=== PATIENT | female | born 1940 | race Caucasian/White ===

== ENCOUNTER 2023-04-21 17:03 | Inpatient (IN) | payer MEDICARE, MEDICAID ==
[~2023-04-21] VITALS: Ht 152.4 cm; Wt 63.1 kg
[2023-04-21] MEDS ORDERED: heparin 10,000 units/1 ML INJ IV ONE (17:25)
[2023-04-21] MEDS ORDERED: morphine 2 MG/ML inj. syringe IV PRN (18:40)
[2023-04-21] MEDS ORDERED: magnesium 2GM in 50ml NS 50 ML IV PRN (18:40)
[2023-04-21] MEDS ORDERED: PERFLUTREN PROTEIN-A MICROSPHR (Optison) 0.22 MG/ML 3ML VIAL IV ONE (18:40)
[2023-04-21] MEDS ORDERED: acetaminophen 325mg tablet PO PRN (18:40)
[2023-04-21] MEDS ORDERED: potassium Cl 20 mEq SR tablet PO PRN (18:40)
[2023-04-21] MEDS ORDERED: magnesium Cl slow-release 64mg tablet PO PRN (18:40)
[2023-04-21] MEDS ORDERED: ondansetron/PF 4mg/2ml inj IV PRN (18:40)
[2023-04-21] MEDS ORDERED: potassium Cl 40MEQ/1/2NS 520ml 520 ML IV PRN (18:40)
[2023-04-21] MEDS ORDERED: magnesium 4gm in 100ml NS 100 ML IV PRN (18:40)
[2023-04-21 19:02] LABS: APTT > 139 SECONDS (22-32)
[2023-04-21 20:29] LABS: MAGNESIUM 2.2 MG/DL (1.5-2.4); POTASSIUM 3.2 MMOL/L (3.5-5.1)
[2023-04-21] MEDS: heparin 25,000 UNIT/250ml bag 250 ML IV PRN (20:29)
--- NOTE | 2023-04-21 20:39 | NUR ---
PER REPORT FROM [facility] RN UNAWARE OF INITIAL HEPARIN BOLUS, RATE ETC. OF HEPARIN NOR WAS A PTT DRAWN. HEPARIN WAS OFF FOR APROX 1 HOUR UPON PT ARRIVAL. PTT DRAWN AT 1735 RESULTED IN HIGH OF 139. HEPARIN PUT ON HOLD FOR 120 MIN PROVIDER NOTIFIED W/ NEW ORDERS TO RESTART AT A DECREASED RATE OF 3U/KG/HR FROM THE BASE RATE OF 800U/ HR. DISCUSSED RATE OF 600 U/ HR MD IN AGREEMENT. DISCUSSED W/ 2 RN'S FOR CO-SIGNING. RN ADMIN PER ORDER W/ NO ASE THUS FAR. PTT TO BE RE-DRAWN AT 22:40. CRN MADE AWARE. WILL CONT TO MONITOR. 140/67, 100, 95%RA, 16, 98.3. NAD NOTED OR OBSERVED.
[2023-04-21] MEDS: K and/or MAG REPLACEMENT MC SCH (20:48)
[2023-04-21] MEDS: potassium Cl 20 mEq SR tablet PO PRN (20:55)
[2023-04-22] MEDS: heparin 10,000 units/1 ML INJ IV PRN ×2 (00:17→14:39)
--- NOTE | 2023-04-22 00:33 | NUR ---
LAST PTT RESULT 40 HEPARIN PROTOCOL RESTARTED PER ORDER BY RN. PTT TO BE DRAWN AT 06:18. CRN NOTIFIED.
[2023-04-22] MEDS: potassium Cl 20 mEq SR tablet PO PRN (06:22)
--- NOTE | 2023-04-22 06:59 | NUR ---
RN CONFIRMED LABS THAT NEED TO BE RECOLLECTED WITH LAB AND CYRUS RODGERS WILL COLLECT AT THIS TIME AND SEND TO LAB.
[2023-04-22 07:17] LABS: BASOPHILS # (AUTO) 0.1 X10'3 (0-0.2); BASOPHILS % (AUTO) 0.8 % (0-1); EOSINOPHILS # (AUTO) 0.2 X10'3 (0-0.9); EOSINOPHILS % (AUTO) 2.1 % (0-6); HEMATOCRIT 36.4 % (35.0-45.0); HEMOGLOBIN 12.1 g/dl (12.0-16.0); LYMPHOCYTES # (AUTO) 0.9 X10'3 (1.1-4.8); LYMPHOCYTES % (AUTO) 10.4 % (21-51); MEAN CORPUSCULAR HEMOGLOBIN 29.5 PG (27.0-31.0); MEAN CORPUSCULAR HGB CONC 33.3 g/dL (33.0-36.5); MEAN CORPUSCULAR VOLUME 88.5 FL (78-98); MEAN PLATELET VOLUME 8.2 FL (7.4-10.4); MONOCYTES # (AUTO) 0.9 X10'3 (0-0.9); MONOCYTES % (AUTO) 10.2 % (2-12); NEUTROPHILS # (AUTO) 6.4 X10'3 (1.8-7.7); NEUTROPHILS % (AUTO) 76.5 % (42-75); PLATELET COUNT 205 X10'3 (140-440); RED BLOOD COUNT 4.12 X10'6 (4.20-5.60); RED CELL DISTRIBUTION WIDTH 16.5 % (11.5-14.5); WHITE BLOOD COUNT 8.4 X10'3 (4.5-11.0)
[2023-04-22 07:22] LABS: ANION GAP 3 (8-16); BLOOD UREA NITROGEN 28 MG/DL (7-18); BUN/CREATININE RATIO 20.9 (10.0-20.0); CALCIUM 8.7 MG/DL (8.5-10.1); CHLORIDE 103 MMOL/L (99-107); CREATININE 1.34 MG/DL (0.40-0.90); GLUCOSE 202 MG/DL (70-104); MAGNESIUM 2.2 MG/DL (1.5-2.4); POTASSIUM 3.9 MMOL/L (3.5-5.1); SODIUM 137 MMOL/L (135-145); TOTAL CARBON DIOXIDE 31.2 MMOL/L (24-32); eCRCL 23 ML/MIN; eGFR 38 ML/MIN
[2023-04-22] MEDS: K and/or MAG REPLACEMENT MC SCH ×2 (08:00→20:00)
--- NOTE | 2023-04-22 08:01 | NUR ---
PT PTT [address] ANG THAT HEP DRIP STOPPED AT [address] ANG CONT HEPARIN DRIP PER PROTOCOL AND COLLECT NEXT PTT 6 HRS FROM RESTART TIME.
[2023-04-22] MEDS: heparin 25,000 UNIT/250ml bag 250 ML IV PRN ×2 (08:28→14:37)
--- NOTE | 2023-04-22 08:38 | NUR ---
RN PAGED DR ANG- IRINA 9- PT HAS DM2. PLEASE ORD PROTOCOL BG 202 AND CARB CONTROLLED DIET. THKS
--- NOTE | 2023-04-22 08:58 | NUR ---
tech assisted pt to the bedside comode, then back to bed. tech gave pt breakfast on bedside table.
[2023-04-22] MEDS ORDERED: MESSAGE TO PHARMACY PO ONE (09:40)
[2023-04-22] MEDS ORDERED: glucagon, human recombinant 1mg kit SUBCUT PRN (09:40)
[2023-04-22] MEDS ORDERED: hydrALAZINE 20mg/ml inj. IV PRN (09:40)
[2023-04-22] MEDS ORDERED: DEXTROSE 15 GM of carb/4 tabs (each vial/BOTTLE has 4 tablets) PO PRN ×2 (09:40)
[2023-04-22] MEDS ORDERED: dextrose 50%-water 50ml dispensing syringe IV PRN ×2 (09:40)
[2023-04-22] MEDS: metoprolol tartrate 1mg/ml inj IV ONE ×2 (10:59→12:34)
--- NOTE | 2023-04-22 11:03 | NUR ---
PT IV NO LONGER WORKING. RN WILL OBTAIN NEW IV AT THIS TIME THEN ADMIN METOPROLOL IV.
--- NOTE | 2023-04-22 11:03 | NUR ---
ANA MARIA IRIZARRY FROM PHARM.
[2023-04-22] MEDS: insulin Lispro (HumaLOG) vial - multi-dose SQ SCH ×2 (11:42→15:52)
--- NOTE | 2023-04-22 11:43 | NUR ---
RN WILL OBTAIN PTT AND RESTART HEPARIN DRIP ONCE RESULTED IF NECESSARY.
--- NOTE | 2023-04-22 12:59 | NUR ---
RN CALLED LAB TO INQ ABOUT PTT STILL PENDING. PER LAB RESULTS SHOULD COME UP WITHIN A FEW MINS.
[2023-04-22 13:00] LABS: APTT 33 SECONDS (22-32)
--- NOTE | 2023-04-22 14:44 | NUR ---
RN HAD TO OBTAIN NEW IV SO HEPARIN BOLUS AND RATE CHG WAS DONE LATE. RN WILL COLLECT PTT STAT AND SEND TO LAB TO ENSURE ACCURACY.
[2023-04-22 15:27] LABS: APTT > 139 SECONDS (22-32)
--- NOTE | 2023-04-22 15:43 | NUR ---
PT PTT 137. RN STOPPED INFUSION/WILL HOLD 2 HRS/YOVANNY PTT IN 2HRS/DR ANG PAGED- ED 9- PTT 137. RN WILL HOLD INFUSION 2 HRS AND YOVANNY PTT PRIOR TO RESTART. THANKS
--- NOTE | 2023-04-22 17:50 | NUR ---
RN COLLECTED PTT AND SENT IT TO LAB.
--- NOTE | 2023-04-22 18:32 | NUR ---
PHONES BEING USED TO GIVE REPORT. RN WILL ATTEMPT TO CALL AND GIVE REPORT ONCE PHONE AVAILABLE.
[2023-04-22 18:33] LABS: APTT 47 SECONDS (22-32)
--- NOTE | 2023-04-22 19:08 | NUR ---
PTT ORD ENTERED PER PROTOCOL FOR 45. DUSTIN WILKINS NOTIFIED. STEWART RODGERS NOTIFIED THAT REPORT CALLED AND PT READY TO GO TO THE FLOOR.
[2023-04-22 21:00] VITALS: BP 169/77; PULSE 121; RESP 20; TEMP 97; O2SAT 90
[2023-04-22] MEDS: insulin glargine (Lantus) pen - multi-dose SQ SCH (21:00)
[2023-04-22] MEDS: metoprolol tartrate 50mg tablet PO SCH (21:26)
[2023-04-22 22:00] VITALS: BP 157/81; PULSE 121; RESP 21; TEMP 97.8; O2SAT 92
[2023-04-23] VITALS (10 sets, daily range): BP systolic 101–158; BP diastolic 65–86; PULSE 89–110; RESP 16–26; TEMP 97.6–99; O2SAT 66–93
[2023-04-23 01:09] LABS: APTT 63 SECONDS (22-32)
--- NOTE | 2023-04-23 06:45 | NUR ---
Problems reprioritized. Patient report given, questions answered & plan of care reviewed with Pastora RODGERS.
[2023-04-23 07:35] LABS: ALBUMIN 3.1 G/DL (3.4-5.0); ANION GAP 6 (8-16); BLOOD UREA NITROGEN 34 MG/DL (7-18); BUN/CREATININE RATIO 27.2 (10.0-20.0); CALCIUM 9.5 MG/DL (8.5-10.1); CHLORIDE 103 MMOL/L (99-107); CREATININE 1.25 MG/DL (0.40-0.90); GLUCOSE 230 MG/DL (70-104); MAGNESIUM 2.5 MG/DL (1.5-2.4); POTASSIUM 4.8 MMOL/L (3.5-5.1); SODIUM 138 MMOL/L (135-145); TOTAL CARBON DIOXIDE 29.1 MMOL/L (24-32); eCRCL 25 ML/MIN; eGFR 41 ML/MIN
[2023-04-23 07:44] LABS: BASOPHILS # (AUTO) 0.1 X10'3 (0-0.2); BASOPHILS % (AUTO) 0.6 % (0-1); EOSINOPHILS % (AUTO) 0.1 % (0-6); HEMATOCRIT 36.8 % (35.0-45.0); LYMPHOCYTES # (AUTO) 0.8 X10'3 (1.1-4.8); MEAN CORPUSCULAR HEMOGLOBIN 29.1 PG (27.0-31.0); MEAN CORPUSCULAR HGB CONC 32.5 g/dL (33.0-36.5); MEAN CORPUSCULAR VOLUME 89.6 FL (78-98); MEAN PLATELET VOLUME 8.5 FL (7.4-10.4); MONOCYTES # (AUTO) 0.8 X10'3 (0-0.9); MONOCYTES % (AUTO) 7.3 % (2-12); NEUTROPHILS # (AUTO) 9.7 X10'3 (1.8-7.7); PLATELET COUNT 260 X10'3 (140-440); RED CELL DISTRIBUTION WIDTH 16.7 % (11.5-14.5); WHITE BLOOD COUNT 11.5 X10'3 (4.5-11.0)
[2023-04-23] MEDS: K and/or MAG REPLACEMENT MC SCH ×2 (08:00→20:00)
--- NOTE | 2023-04-23 08:47 | NUR ---
MESSAGE SENT TO DR ANG: PAGER ID: [phone] MESSAGE: HALLIE PERSON [phone], [place] [phone] CRITICAL LAB FROM [facility]: GRAM POSITIVE COCCI/CLUSTERS, AEROBIC BOTTLE.
[2023-04-23] MEDS ORDERED: VANCOMYCIN 750MG IV in NS 250 ML IV SCH (09:30)
[2023-04-23] MEDS: insulin Lispro (HumaLOG) vial - multi-dose SQ SCH ×2 (09:49→13:32)
[2023-04-23] MEDS: aspirin 81mg, enteric-coated 1 TAB TABLET.DR PO SCH (09:57)
[2023-04-23] MEDS: metoprolol tartrate 50mg tablet PO SCH ×2 (09:58→22:33)
[2023-04-23] MEDS: losartan 25mg tablet PO SCH (09:58)
[2023-04-23] MEDS: atorvastatin 20mg tablet PO SCH (09:58)
--- NOTE | 2023-04-23 10:03 | NUR ---
DM Consult: Pt hx DM A1C 8.1% per EMR. A1C appropriate given age per ADA guidelines. Addendum: 04/23/23 at [address] Amended: Links added.
[2023-04-23] MEDS ORDERED: aminophylline 250mg/10ml inj. IV PRN (10:05)
[2023-04-23] MEDS ORDERED: regadenoson 0.4mg/5ml syringe IV PRN (10:05)
[2023-04-23] MEDS ORDERED: metoprolol tartrate 1mg/ml inj IV PRN (10:05)
[2023-04-23] MEDS ORDERED: nitroGLYCERIN 0.4mg SUBLingual tab SL PRN (10:05)
--- NOTE | 2023-04-23 11:51 | NUR ---
CRITICAL TROP 217, DR BARONE, AWAITING CALL BACK PAGER ID: [phone] MESSAGE: [id number] [id number]: CRITICAL TROP 217. THANK YOU KALEN/NAYA [phone]
[2023-04-23] MEDS ORDERED: ipratropium/albuterol 3ml nebule NEB PRN (12:00)
--- NOTE | 2023-04-23 12:01 | NUR ---
Message sent to Dr Landis PAGER ID: [phone] MESSAGE: pool Guillory [phone], [place] [phone] Critical troponin 217. (56 character message out of a maximum of 240) CLOSE [X] SEND ANOTHER PAGE Thank you for visiting [facility] promotional table spacer promotional table spacer
[2023-04-23] MEDS ORDERED: furosemide 40mg/4ml inj IV SCH (13:35)
--- NOTE | 2023-04-23 16:08 | NUR ---
Student charting reviewed by the instructor
--- NOTE | 2023-04-23 18:46 | NUR ---
REPORT GIVEN TO BRANNON DAS. PT EATING DINNER, DESATS W/OUT OXYGEN, BRANNON WILL MONITOR. NO NEW COMPLAINTS AT THIS TIME.
[2023-04-23] MEDS: insulin glargine (Lantus) pen - multi-dose SQ SCH (21:00)
[2023-04-24] VITALS (12 sets, daily range): BP systolic 120–161; BP diastolic 59–79; PULSE 78–110; RESP 12–28; TEMP 97.5–98.8; O2SAT 88–96
--- NOTE | 2023-04-24 02:37 | NUR ---
OFFICE INSPECTOR informed nurse pt oxygen saturation was staying around 85%. Nurse and OFFICE INSPECTOR boosted pt up in bed, pt A+O to baseline, answering questions appropriately and obeys nurse requests. Nurse changed pt from a nasal cannula to simple mask as pt is a mouth breather, oxygen saturation increased to 88%.
[2023-04-24 06:31] LABS: BASOPHILS # (AUTO) 0.1 X10'3 (0-0.2); BASOPHILS % (AUTO) 0.6 % (0-1); EOSINOPHILS % (AUTO) 0.1 % (0-6); HEMATOCRIT 37.2 % (35.0-45.0); HEMOGLOBIN 11.8 g/dl (12.0-16.0); LYMPHOCYTES # (AUTO) 0.9 X10'3 (1.1-4.8); LYMPHOCYTES % (AUTO) 7.8 % (21-51); MEAN CORPUSCULAR HEMOGLOBIN 28.6 PG (27.0-31.0); MEAN CORPUSCULAR HGB CONC 31.8 g/dL (33.0-36.5); MEAN CORPUSCULAR VOLUME 90.1 FL (78-98); MEAN PLATELET VOLUME 8.1 FL (7.4-10.4); MONOCYTES # (AUTO) 0.4 X10'3 (0-0.9); MONOCYTES % (AUTO) 3.5 % (2-12); NEUTROPHILS # (AUTO) 10.3 X10'3 (1.8-7.7); PLATELET COUNT 319 X10'3 (140-440); RED BLOOD COUNT 4.13 X10'6 (4.20-5.60); RED CELL DISTRIBUTION WIDTH 17.1 % (11.5-14.5); WHITE BLOOD COUNT 11.7 X10'3 (4.5-11.0)
--- NOTE | 2023-04-24 06:48 | NUR ---
Problems reprioritized. Patient report given, questions answered & plan of care reviewed with Yasmin RODGERS. Pt stable at shift change.
[2023-04-24 07:18] LABS: ANION GAP 8 (8-16); BLOOD UREA NITROGEN 59 MG/DL (7-18); BUN/CREATININE RATIO 31.1 (10.0-20.0); CALCIUM 9.7 MG/DL (8.5-10.1); CHLORIDE 101 MMOL/L (99-107); GLUCOSE 270 MG/DL (70-104); MAGNESIUM 2.7 MG/DL (1.5-2.4); POTASSIUM 4.8 MMOL/L (3.5-5.1); SODIUM 138 MMOL/L (135-145); TOTAL CARBON DIOXIDE 28.9 MMOL/L (24-32); eCRCL 16 ML/MIN; eGFR 25 ML/MIN
[2023-04-24] MEDS: K and/or MAG REPLACEMENT MC SCH ×2 (08:00→20:00)
[2023-04-24] MEDS: aspirin 81mg, enteric-coated 1 TAB TABLET.DR PO SCH (08:10)
[2023-04-24] MEDS: atorvastatin 20mg tablet PO SCH (08:10)
[2023-04-24] MEDS: metoprolol tartrate 50mg tablet PO SCH ×2 (08:10→22:02)
[2023-04-24] MEDS: furosemide 40mg/4ml inj IV SCH ×3 (08:11→22:02)
[2023-04-24] MEDS: insulin Lispro (HumaLOG) vial - multi-dose SQ SCH ×2 (08:17→13:54)
[2023-04-24 09:28] LABS: ABG BASE EXCESS 0.9 mmol/L (-2.0-2.0); ABG HCO3 27.9 mmol/L (22.0-26.0); ABG OXYGEN SATURATION 83.1 % (94-97); ABG PCO2 (T) 55.5 mmHg (32.0-45.0); ABG PH (T) 7.319 (7.350-7.450); ABG PO2 (T) 51.1 mmHg (75.0-100.0); ALLEN'S TEST POSITIVE; FCOHb 0.6 % (0.0-3.9); FHHb 16.7 % (0.0-5.0); FMetHb 0.3 % (0.0-1.5); FO2Hb 82.4 % (94-97); MODE ROOM AIR; TOTAL HEMOGLOBIN 12.2 G/dl (12.0-16.0)
--- NOTE | 2023-04-24 09:33 | NUR ---
Per facility chain of command, contacted resident regarding pt. increased confusion, increased RR and need for 02, and positive BC from documents in hard chart.
--- NOTE | 2023-04-24 09:52 | NUR ---
Pt. taking 02 mask off often. Reeducated many times. Drops to 70s. Pt. found out of bed in bathroom with o2 off. Resident made aware ABGs drawn and pt. confused and a danger to herself. States she will discuss with hospitalist when she rounds.
[2023-04-24] MEDS: losartan 25mg tablet PO SCH (11:34)
[2023-04-24] MEDS: vancomycin inj 500 MG in normal saline 100ml IV soln 100 ML IV SCH (11:35)
--- NOTE | 2023-04-24 11:42 | NUR ---
Called resident for information on pt. after rounding. FRANCISCA.
[2023-04-24] MEDS ORDERED: ATOR-2 PO (16:58)
[2023-04-24] MEDS ORDERED: CLOP75TA34 PO (16:58)
[2023-04-24] MEDS ORDERED: METO25TA6 PO (16:58)
[2023-04-24] MEDS ORDERED: FURO20TA4 PO (16:58)
[2023-04-24] MEDS ORDERED: NITR0.4T48 PO (16:58)
[2023-04-24] MEDS ORDERED: GABA600T13 PO (16:58)
[2023-04-24] MEDS ORDERED: AMLO5TAB16 PO (16:58)
[2023-04-24] MEDS ORDERED: ALEN70TA80 PO (16:58)
--- NOTE | 2023-04-24 18:30 | NUR ---
GAVE REPORT TO BRANNON RODGERS.
[2023-04-24] MEDS: insulin glargine (Lantus) pen - multi-dose SQ SCH (21:53)
[2023-04-25] VITALS (18 sets, daily range): BP systolic 106–172; BP diastolic 45–81; PULSE 83–100; RESP 13–20; TEMP 98–98.9; O2SAT 91–95
[2023-04-25] MEDS: heparin, porcine 5000 units/ml vial SQ SCH ×3 (01:41→17:54)
[2023-04-25 03:30] LABS: ABG BASE EXCESS 8.7 mmol/L (-2.0-2.0); ABG HCO3 35.4 mmol/L (22.0-26.0); ABG OXYGEN SATURATION 94.1 % (94-97); ABG PCO2 (T) 58.7 mmHg (32.0-45.0); ABG PH (T) 7.397 (7.350-7.450); ABG PO2 (T) 70.4 mmHg (75.0-100.0); ALLEN'S TEST Modified; FCOHb 0.4 % (0.0-3.9); FHHb 5.9 % (0.0-5.0); FMetHb 0.3 % (0.0-1.5); FO2Hb 93.4 % (94-97); MODE BiPAP; PATIENT TEMPERATURE 36.8; RESPIRATORY RATE 8 b/min
--- NOTE | 2023-04-25 05:21 | NUR ---
Pt morning ABGs resulted, Provider Ranulfo notified. pH went from 7.319 to 7.397, CO2 went from 55.5 to 59.2, and HCO3 went from 27.9 to 35.4. Provider told nurse to message respiratory to increase Bipap tidal volume and RR settings if possible.
--- NOTE | 2023-04-25 05:59 | NUR ---
Nurse notified provider Bargan that pt had foul smelling urine and was incontinent. Provider gave order for a UA.
--- NOTE | 2023-04-25 06:32 | NUR ---
Problems reprioritized. Patient report given, questions answered & plan of care reviewed with Yasmin RODGERS. Pt stable at shift change.
[2023-04-25 06:49] LABS: BASOPHILS # (AUTO) 0.1 X10'3 (0-0.2); EOSINOPHILS # (AUTO) 0.1 X10'3 (0-0.9); EOSINOPHILS % (AUTO) 1.8 % (0-6); HEMATOCRIT 34.9 % (35.0-45.0); HEMOGLOBIN 11.4 g/dl (12.0-16.0); LYMPHOCYTES # (AUTO) 0.9 X10'3 (1.1-4.8); LYMPHOCYTES % (AUTO) 13.1 % (21-51); MEAN CORPUSCULAR HEMOGLOBIN 28.9 PG (27.0-31.0); MEAN CORPUSCULAR HGB CONC 32.6 g/dL (33.0-36.5); MEAN CORPUSCULAR VOLUME 88.6 FL (78-98); MONOCYTES # (AUTO) 0.7 X10'3 (0-0.9); MONOCYTES % (AUTO) 9.7 % (2-12); NEUTROPHILS # (AUTO) 5.2 X10'3 (1.8-7.7); NEUTROPHILS % (AUTO) 74.4 % (42-75); PLATELET COUNT 242 X10'3 (140-440); RED BLOOD COUNT 3.94 X10'6 (4.20-5.60); RED CELL DISTRIBUTION WIDTH 16.5 % (11.5-14.5)
[2023-04-25 07:11] LABS: ALBUMIN 2.7 G/DL (3.4-5.0); ANION GAP 8 (8-16); BLOOD UREA NITROGEN 55 MG/DL (7-18); BUN/CREATININE RATIO 37.9 (10.0-20.0); CALCIUM 9.3 MG/DL (8.5-10.1); CHLORIDE 104 MMOL/L (99-107); CREATININE 1.45 MG/DL (0.40-0.90); GLUCOSE 165 MG/DL (70-104); MAGNESIUM 2.3 MG/DL (1.5-2.4); POTASSIUM 3.6 MMOL/L (3.5-5.1); SODIUM 143 MMOL/L (135-145); TOTAL CARBON DIOXIDE 30.6 MMOL/L (24-32); eCRCL 21 ML/MIN; eGFR 34 ML/MIN
--- NOTE | 2023-04-25 07:17 | NUR ---
0715- RT AT PATIENTS BEDSIDE. PER PATIENTS LAST ABG, PATIENT FULLY COMPENSATED WITH A PH OF 7.39. PT ALERT AND ORIENTED, SHOWING NO SIGNS OF SOB/DISTRESS. RT PLACED PATIENT ON 4L NC SPO2 96%. RT WILL CONTINUE TO MONITOR PT. Addendum: 04/25/23 at 0722 by Nolvia Garcia RT Amended: Links added.
[2023-04-25] MEDS: K and/or MAG REPLACEMENT MC SCH ×2 (08:00→19:35)
[2023-04-25 09:27] LABS: BILIRUBIN,URINE NEGATIVE (Neg); CLARITY,URINE CLOUDY (Clear); COLOR,URINE YELLOW (Yellow); GLUCOSE, URINE NEGATIVE (Neg); KETONES,URINE NEGATIVE (Neg); LEUKOCYTE ESTERASE ,URINE LARGE (Neg); NITRITES, URINE POSITIVE (Neg); OCCULT BLOOD,URINE TRACE-INTACT (Neg); PH,URINE 5.5 (4.8-8.0); PROTEIN,URINE TRACE mg/dl (Neg); UROBILINOGEN,URINE 0.2 E.U/dL (0.2-1.0)
[2023-04-25] MEDS: furosemide 40mg/4ml inj IV SCH ×2 (09:27→19:22)
[2023-04-25] MEDS: metoprolol tartrate 50mg tablet PO SCH ×2 (09:28→19:23)
[2023-04-25] MEDS: atorvastatin 20mg tablet PO SCH (09:29)
[2023-04-25] MEDS: aspirin 81mg, enteric-coated 1 TAB TABLET.DR PO SCH (09:29)
[2023-04-25 09:33] LABS: SQUAMOUS EPITHELIAL CELL,UR FEW /LPF (FEW); UA COLLECTION TYPE CLN CATCH MIDSTREAM
[2023-04-25 09:34] LABS: BACTERIA,URINE 4+ /HPF (Neg); WBC,URINE TNTC /HPF (0-4)
[2023-04-25 09:35] LABS: RBC,URINE 0-2 /HPF (0-2); WBC CLUMPS,URINE MODERATE /HPF (NEGATIVE)
[2023-04-25] MEDS: insulin Lispro (HumaLOG) vial - multi-dose SQ SCH ×2 (09:36→13:13)
[2023-04-25] MEDS: vancomycin inj 500 MG in normal saline 100ml IV soln 100 ML IV SCH (11:00)
[2023-04-25] MEDS: losartan 25mg tablet PO SCH (11:01)
[2023-04-25] MEDS ORDERED: ALEN70TA60 PO (13:17)
[2023-04-25] MEDS ORDERED: ALLO100T25 PO (13:17)
[2023-04-25] MEDS ORDERED: ASPI81TA52 PO (13:17)
[2023-04-25] MEDS ORDERED: COLC0.6T72 PO (13:17)
[2023-04-25] MEDS ORDERED: CALC-1215 PO (13:17)
[2023-04-25] MEDS ORDERED: IBUP-2697 PEG (13:17)
[2023-04-25] MEDS ORDERED: INSU100V9 SQ ×2 (13:17)
[2023-04-25] MEDS ORDERED: regadenoson 0.4mg/5ml syringe IV ONE (14:30)
--- NOTE | 2023-04-25 15:10 | NUR ---
DM Consult: Addressed; see prior RD note. Addendum: 04/25/23 at [address] Amended: Links added.
--- NOTE | 2023-04-25 18:18 | NUR ---
Gave report to Melanie RODGERS.
--- NOTE | 2023-04-25 19:02 | NUR ---
provider paged PAGER ID: [phone] MESSAGE: [phone]. FYI pt daughter would like to talk to MD regarding plan with pt. Nurse talked and updated to best of my ability. thanks, Melanie [phone].
[2023-04-25] MEDS: gabapentin 300mg capsule PO SCH (19:23)
[2023-04-25] MEDS: CALCIUM CARBONATE PO SCH (19:35)
[2023-04-25] MEDS: VITAMIN D3 PO SCH (19:35)
[2023-04-25] MEDS: insulin glargine (Lantus) pen - multi-dose SQ SCH (21:00)
[2023-04-25] MEDS ORDERED: INSULIN GLARGINE HUM REC ANLOG 35 UNIT SQ SCH (21:00)
[2023-04-26] MEDS: heparin, porcine 5000 units/ml vial SQ SCH ×2 (00:22→08:43)
[2023-04-26 02:00] VITALS: BP 165/72; PULSE 82; RESP 18; TEMP 98.7; O2SAT 95
--- NOTE | 2023-04-26 06:42 | NUR ---
Problems reprioritized. Patient report given, questions answered & plan of care reviewed with Yasmin RODGERS. Pt stable at shift change.
[2023-04-26 06:58] VITALS: BP 158/62; PULSE 76; RESP 21; TEMP 98.7; O2SAT 93
[2023-04-26 07:34] LABS: BASOPHILS # (AUTO) 0.1 X10'3 (0-0.2); BASOPHILS % (AUTO) 1.2 % (0-1); EOSINOPHILS # (AUTO) 0.3 X10'3 (0-0.9); EOSINOPHILS % (AUTO) 4.1 % (0-6); HEMATOCRIT 36.7 % (35.0-45.0); HEMOGLOBIN 12.1 g/dl (12.0-16.0); LYMPHOCYTES # (AUTO) 1.4 X10'3 (1.1-4.8); MEAN CORPUSCULAR HEMOGLOBIN 29.1 PG (27.0-31.0); MEAN CORPUSCULAR VOLUME 88.3 FL (78-98); MEAN PLATELET VOLUME 8.1 FL (7.4-10.4); MONOCYTES # (AUTO) 0.9 X10'3 (0-0.9); MONOCYTES % (AUTO) 11.6 % (2-12); NEUTROPHILS # (AUTO) 4.9 X10'3 (1.8-7.7); NEUTROPHILS % (AUTO) 64.1 % (42-75); PLATELET COUNT 282 X10'3 (140-440); RED BLOOD COUNT 4.15 X10'6 (4.20-5.60); RED CELL DISTRIBUTION WIDTH 16.5 % (11.5-14.5); WHITE BLOOD COUNT 7.6 X10'3 (4.5-11.0)
[2023-04-26 08:00] VITALS: RESP 18; O2SAT 93
[2023-04-26] MEDS ORDERED: clopidogrel 75mg tablet PO SCH (08:00)
[2023-04-26] MEDS ORDERED: non-formulary drug (Insulin Glargine,Hum.rec.anlog (Lantus) 20 UNIT) SQ SCH (08:00)
[2023-04-26] MEDS ORDERED: aspirin 81mg, enteric-coated 1 TAB TABLET.DR PO SCH (08:00)
[2023-04-26] MEDS ORDERED: atorvastatin 20mg tablet PO SCH (08:00)
[2023-04-26] MEDS ORDERED: amLODIPine 5mg tablet PO SCH (08:00)
[2023-04-26] MEDS: gabapentin 300mg capsule PO SCH ×2 (08:00→09:05)
[2023-04-26] MEDS: VITAMIN D3 PO SCH (08:00)
[2023-04-26] MEDS ORDERED: losartan 25mg tablet PO SCH (08:00)
[2023-04-26] MEDS: K and/or MAG REPLACEMENT MC SCH (08:00)
[2023-04-26] MEDS: CALCIUM CARBONATE PO SCH (08:00)
[2023-04-26 08:37] LABS: ALBUMIN 2.7 G/DL (3.4-5.0); ANION GAP 4 (8-16); BLOOD UREA NITROGEN 45 MG/DL (7-18); BUN/CREATININE RATIO 38.8 (10.0-20.0); CHLORIDE 104 MMOL/L (99-107); CREATININE 1.16 MG/DL (0.40-0.90); GLUCOSE 115 MG/DL (70-104); POTASSIUM 3.2 MMOL/L (3.5-5.1); SODIUM 146 MMOL/L (135-145); TOTAL CARBON DIOXIDE 37.6 MMOL/L (24-32); eCRCL 26 ML/MIN; eGFR 45 ML/MIN
[2023-04-26] MEDS: metoprolol tartrate 50mg tablet PO SCH (08:42)
[2023-04-26 08:43] VITALS: BP_SYST 160
[2023-04-26] MEDS: furosemide 40mg/4ml inj IV SCH (08:43)
[2023-04-26] MEDS: insulin Lispro (HumaLOG) vial - multi-dose SQ SCH (09:01)
[2023-04-26] MEDS ORDERED: potassium Cl 20 mEq SR tablet PO STA (10:19)
[2023-04-26] MEDS ORDERED: potassium Cl 20 mEq SR tablet PO PRN ×2 (10:20)
[2023-04-26] MEDS ORDERED: POTASSIUM BICARB 20meq eff tab 20 MEQ TABLET.EFF PO STA (10:49)
[2023-04-26] MEDS ORDERED: POTASSIUM BICARB 20meq eff tab 20 MEQ TABLET.EFF PO PRN ×2 (10:50)
--- NOTE | 2023-04-26 10:53 | NUR ---
O2 Sat at rest on room air:_92__% If below 89%: Recovery O2 Sat at rest on _2__LPM:__98_%:___% via___n/c (mask/nasal cannula, etc..) No further documentation is necessary. If O2 Sat did not drop below 89% on room air,ambulate patient on room air. O2 Sat while ambulating on room air:_81__% Recovery O2 Sat while ambulating on __91_LPM:__2_% No further documentation is necessary. If patient does not drop below 89% while ambulating, he/she does not qualify for home O2.
[2023-04-26] MEDS: vancomycin inj 500 MG in normal saline 100ml IV soln 100 ML IV SCH (11:00)
[2023-04-26 11:02] VITALS: PULSE 66; RESP 18; O2SAT 96
--- NOTE | 2023-04-26 12:05 | NUR ---
Initial: Pt presented with c/o SOB and admit for CHF with preserved EF and NSETMI with acute respiratory, PNA, and VITA. Per EMR pt currently on 2 L NC. Pt on an SB6 heart healthy CHO controlled diet and overall eating poorly, given 0% PO intake of four meals pt with average 28% PO intake since admit meeting 31% estimated energy needs and 41% estimated protein needs. Per EMR pt is confused, possibly impacting PO intake. Recommend an Ensure Enlive TID to optimize PO intake, to be sent pending physician approval in EMR. Also recommend discontinuing heart healthy and CHO controlled diet restrictions given poor PO intake. LBM 04/25 per EMR. Will continue to follow closely and make recommendations as appropriate. Recommendations: 1) Continue SB6 diet with thin liquids; discontinue heart healthy CHO controlled diet restrictions given poor PO intake 2) Ensure Enlive TID, pending physician approval in EMR 3) Encourage PO intake and assist with meals PRN 4) Routine bowel care 5) Weekly scaled weights Addendum: 04/26/23 at [address] Amended: Links added.
[2023-04-26] MEDS ORDERED: lactose-reduced food (Ensure Enlive) - 237ml bottle PO SCH (13:00)
[2023-04-26] MEDS ORDERED: LOSA25TA41 PO (14:05)
[2023-04-26] MEDS ORDERED: POTA20TA34 PO (14:05)
[2023-04-26] MEDS ORDERED: IPRA3AMP9 NEB (14:05)
[2023-04-26] MEDS ORDERED: gabapentin capsule PO (14:05)
[2023-04-26] MEDS ORDERED: METO50TA16 PO (14:05)
[2023-04-26] MEDS ORDERED: FURO40TA4 PO (14:05)
[2023-04-26] MEDS ORDERED: METO50TA17 PO (14:27)
[2023-04-26 14:28] VITALS: RESP 12; O2SAT 95
[2023-04-26] MEDS ORDERED: CIPR250T4 PO (14:39)
--- NOTE | 2023-04-26 16:13 | NUR ---
DISCHARGE NOTE: Pt and daughter at bedside. Reviewed discharge paperwork, medications, possible ASE, probiotic use, cardiac meds, f/u care, diabetic care, preferred pharmacy. Written education also provided. PIV DC'd by SRN, cannula intact, pressure drsg applied, no s/sx bleeding noted. Tele removed and returned to tele chamber. Pt. had the opportunity to ask questions. Pt left with her belongings to discharge home.
[2023-04-27] MEDS ORDERED: gabapentin 300mg capsule PO SCH (08:00)
[2023-04-27] MEDS ORDERED: VANCOMYCIN LEVEL IV ONE (09:30)
== END 2023-04-26 16:00 | disposition home or self-care (01) | DRG 280 ==
LOC: EDBD 17:05 → ER 17:05 → ED HOLD 18:47 → EDBEDREQ 19:41 → PCU 3S 04-22 19:45
PROVIDERS: ADMIT Internal Medicine; ATTEND Internal Medicine
PROC: 5A09357 Assistance with Respiratory Ventilation, Less than 24 Consecutive Hours, Continuous Positive Airway Pressure (ICD-10-PCS; 2023-04-24)
PROC: 4A02XM4 Measurement of Cardiac Total Activity, External Approach (ICD-10-PCS; principal; 2023-04-25)
PROC: 3E033HZ Introduction of Radioactive Substance into Peripheral Vein, Percutaneous Approach (ICD-10-PCS; 2023-04-25)
DX: I21.4 Non-ST elevation (NSTEMI) myocardial infarction (principal); G93.41 Metabolic encephalopathy; J18.9 Pneumonia, unspecified organism; J96.01 Acute respiratory failure with hypoxia; I50.30 Unspecified diastolic (congestive) heart failure; N17.9 Acute kidney failure, unspecified; N39.0 Urinary tract infection, site not specified; I08.3 Combined rheumatic disorders of mitral, aortic and tricuspid valves; I10 Essential (primary) hypertension; Z20.822 Contact with and (suspected) exposure to COVID-19; I25.10 Atherosclerotic heart disease of native coronary artery without angina pectoris; E11.9 Type 2 diabetes mellitus without complications; E78.5 Hyperlipidemia, unspecified; Z95.1 Presence of aortocoronary bypass graft; Z79.82 Long term (current) use of aspirin; Z79.02 Long term (current) use of antithrombotics/antiplatelets
CPT/HCPCS: 36415; 36600; 78452; 80048; 81001; 82803; 82948; 83036; 83735; 84132; 84484; 85018; 85025; 85730; 87077; 87081; 87088; 87186; 87502; 87503; 87811; 93017; 93306; 94640; 94660; 94760; 97116; 97161; 97530; 99285; A4615; A4620; A6253; A6258; A6455; A9500; G0378; J0360; J1644; J1815; J1940; J2405; J2785; J3370; J3490; J7050